=== PATIENT | female | born 1990 | race Caucasian/White ===

== ENCOUNTER 2018-09-04 19:21 | Emergency (ER) | payer BC ==
[2018-09-04] MEDS ORDERED: NORMAL SALINE 1000 ML 1,000 ML IV ONE (20:02)
--- NOTE | 2018-09-04 20:04 | ER Document Report ---
ED Medical Screen (RME) - General Chief Complaint: Palpitations/dizzy Stated Complaint: DIZZINESS Time Seen by Provider: 09/04/18 19:56 TRAVEL OUTSIDE OF THE [place] IN LAST 30 DAYS: No - HPI Patient complains to provider of: Dizziness with near syncope Notes: 09/04/18 20:03 Patient is a 28-year-old female presenting to the emergency room complaining of dizziness with near syncopal episodes that have been occurring intermittently over the past 2 weeks, she denies a headache, no vision changes, no nausea or vomiting, no fever or chills, currently menstruating but states it is fairly light and she has not had significant blood loss 09/04/18 20:04 RAPID MEDICAL EVALUATION DISCLOSURE I have seen this patient as part of a Rapid Medical Evaluation and, if applicable, placed any initially appropriate orders. The patient will be seen and fully evaluated, including a full history and physical exam, by a provider (in Main ED or Fast Track) when a room becomes available. - Related Data Allergies/Adverse Reactions: codeine Allergy (Verified 09/04/18 19:26) Physical Exam - Vital signs Vitals: Temp Pulse Resp BP Pulse Ox 98 F 82 18 146/77 H 100 09/04/18 19:34 09/04/18 19:34 09/04/18 19:34 09/04/18 19:34 09/04/18 19:34 Course - Vital Signs Vital signs: Temp Pulse Resp BP Pulse Ox 98 F 82 18 146/77 H 100 09/04/18 19:34 09/04/18 19:34 09/04/18 19:34 09/04/18 19:34 09/04/18 19:34
[2018-09-04 20:37] LABS: ABSOLUTE EOSINOPHILS # (AUTO) 0.1 10^3/uL (0.0-0.6); ABSOLUTE LYMPHOCYTES (AUTO) 2.3 10^3/uL (0.5-4.7); ABSOLUTE MONOCYTES (AUTO) 0.6 10^3/uL (0.1-1.4); BASOPHILS % (AUTO) 0.4 % (0-2); EOSINOPHILS % (AUTO) 0.8 % (0-6); HEMOGLOBIN 15.3 g/dL (12.0-15.5); LYMPHOCYTES % (AUTO) 28.6 % (13-45); MEAN CORPUSCULAR HEMOGLOBIN 32.2 pg (27.0-33.4); MEAN CORPUSCULAR HGB CONC 34.8 g/dL (32.0-36.0); MEAN CORPUSCULAR VOLUME 93 fl (80-97); MONOCYTES % (AUTO) 7.8 % (3-13); PLATELET COUNT 243 10^3/uL (150-450); RED BLOOD COUNT 4.76 10^6/uL (3.72-5.28); RED CELL DISTRIBUTION WIDTH 13.2 % (11.5-14.0); SEGMENTED NEUTROPHILS % (AUTO) 62.4 % (42-78); TOTAL CELLS COUNTED % (AUTO) 100 %
[2018-09-04 20:50] LABS: ANION GAP 11 (5-19)
[2018-09-04 21:03] LABS: CREATINE KINASE MB 0.28 ng/mL (<4.55)
[2018-09-04 21:04] LABS: TROPONIN I < 0.012 ng/mL
--- NOTE | 2018-09-04 21:06 | ER Document Report ---
ED General - General Chief Complaint: Palpitations/dizzy Stated Complaint: DIZZINESS Time Seen by Provider: 09/04/18 19:56 Primary Care Provider: CARRIE BRUNSON FNP [Primary Care Provider] - Follow up as needed Notes: 28-year-old female patient emergency department chief complaint of hypertension, dizzy spells. Intermittent weight loss and weight gain. Has not felt well for several weeks now. Went to her primary care doctor and was told her blood pressure was too high so she was sent here. Came to the ER yesterday but it was too busy and she felt better so she eventually left. Patient does have some PTSD from some trauma that happened several years ago. We did not go into discussing this. States that she has lost about 30 pounds since February. She has been working out however. There is a strong family history of Graves' disease and thyroid dysfunctions. Occasionally she will have some pain in the neck and thyroid area. Denies any chest pain at this time. No shortness of breath. No fever, chills, sweats. TRAVEL OUTSIDE OF THE [place] IN LAST 30 DAYS: No - HPI Onset: Last week Onset/Duration: Gradual, Constant Quality of pain: No pain Severity: Mild Pain Level: 0 Associated symptoms: Other - Dizziness, hypertension - Related Data Allergies/Adverse Reactions: codeine Allergy (Verified 09/04/18 19:26) Past Medical History - General Information source: Patient - Social History Smoking Status: Never Smoker Chew tobacco use (# tins/day): No Frequency of alcohol use: None Drug Abuse: None Lives with: Spouse/Significant other Family History: Thyroid Disfunction Patient has suicidal ideation: No Patient has homicidal ideation: No Renal/ Medical History: Denies: Hx Peritoneal Dialysis Past Surgical History: Reports: Hx Cholecystectomy, Hx Genitourinary Surgery Review of Systems - Review of Systems Notes: Constitutional: denies: Chills, Diaphoresis, Fever, Malaise, Weakness EENT: denies: Eye discharge, Blurred vision, Tearing, Double vision, Nose congestion, Nose discharge, Throat swelling, Mouth pain Cardiovascular: denies: Palpitations, Heart racing, Orthopnea, Dyspnea, Chest pain. Hypertension Respiratory: denies: Cough, Hurts to breathe, Wheezing, Shortness of breath Gastrointestinal: denies: Abdominal pain, Diarrhea, Nausea, Vomiting, Black stools, bright red blood in stool Genitourinary: denies: Burning, Dysuria, Discharge, Frequency, Flank pain, Hematuria Musculoskeletal: denies: Joint pain, Joint swelling, Muscle pain, Muscle sti ffness, back pain Hematologic/Lymphatic: denies: Anemia, Easy bleeding, Easy bruising, Blood clots Neurological/Psychological: denies: Confusion, Dementia, Depression, Loss of consciousness. Dizziness Skin: No lesions, no masses, no skin breakdown, no abscesses Physical Exam - Vital signs Vitals: Temp Pulse Resp BP Pulse Ox 98 F 82 18 146/77 H 100 09/04/18 19:34 09/04/18 19:34 09/04/18 19:34 09/04/18 19:34 09/04/18 19:34 Interpretation: Normal - General General appearance: Appears well, Alert - HEENT Head: Normocephalic, Atraumatic Eyes: Normal Pupils: PERRL - Respiratory Respiratory status: No respiratory distress Chest status: Nontender Breath sounds: Normal Chest palpation: Normal - Cardiovascular Rhythm: Regular Heart sounds: Normal auscultation Murmur: No - Abdominal Inspection: Normal Distension: No distension Bowel sounds: Normal Tenderness: Nontender Organomegaly: No organomegaly - Back Back: Normal, Nontender - Extremities General upper extremity: Normal inspection, Nontender, Normal color, Normal ROM, Normal temperature General lower extremity: Normal inspection, Nontender, Normal color, Normal ROM, Normal temperature, Normal weight bearing. No: Teresa's sign - Neurological Neuro grossly intact: Yes Cognition: Normal Orientation: AAOx4 Victorina Coma Scale Eye Opening: Spontaneous Leopold Coma Scale Verbal: Oriented Victorina Coma Scale Motor: Obeys Commands Leopold Coma Scale Total: 15 Speech: Normal Motor strength normal: LUE, RUE, LLE, RLE Sensory: Normal - Psychological Associated symptoms: Normal affect, Normal mood - Skin Skin Temperature: Warm Skin Moisture: Dry Skin Color: Normal Course - Re-evaluation Re-evalutation: 09/04/18 22:14 This is a well-appearing female in no acute distress. There is some concern based on her history of she could have some sort of thyroid dysfunction. TSH, free T4 and free T3 was ordered. TSH is elevated. Thyroid antibodies ordered. 09/04/18 22:15 Laboratory 09/04/18 09/04/18 09/04/18 20:20 20:20 20:20 WBC 8.0 RBC 4.76 Hgb 15.3 Hct 44.0 MCV 93 MCH 32.2 MCHC 34.8 RDW 13.2 Plt Count 243 Seg Neutrophils % 62.4 Lymphocytes % 28.6 Monocytes % 7.8 Eosinophils % 0.8 Basophils % 0.4 Absolute Neutrophils 5.0 Absolute Lymphocytes 2.3 Absolute Monocytes 0.6 Absolute Eosinophils 0.1 Absolute Basophils 0.0 Sodium 142.5 Potassium 4.2 Chloride 106 Carbon Dioxide 26 Anion Gap 11 BUN 14 Creatinine 0.84 Est GFR ( Amer) > 60 Est GFR (Non-Af Amer) > 60 Glucose 104 Calcium 9.7 Total Bilirubin 0.4 Direct Bilirubin 0.2 Neonat Total Bilirubin Not Reportable Neonat Direct Bilirubin Not Reportable Neonat Indirect Bili Not Reportable AST 24 ALT 28 Alkaline Phosphatase 70 Creatine Kinase 60 CK-MB (CK-2) 0.28 Troponin I < 0.012 Total Protein 7.7 Albumin 4.7 TSH Free T4 Free T3 pg/mL Urine Color Urine Appearance Urine pH Ur Specific Williams Urine Protein Urine Glucose (UA) Urine Ketones Urine Blood Urine Nitrite Urine Bilirubin Urine Urobilinogen Ur Leukocyte Esterase Urine WBC (Auto) Urine RBC (Auto) Urine Bacteria (Auto) Squamous Epi Cells Auto Amorphous Sediment Auto Urine Mucus (Auto) Urine Ascorbic Acid Urine HCG, Qual 09/04/18 09/04/18 20:20 20:45 WBC RBC Hgb Hct MCV MCH MCHC RDW Plt Count Seg Neutrophils % Lymphocytes % Monocytes % Eosinophils % Basophils % Absolute Neutrophils Absolute Lymphocytes Absolute Monocytes Absolute Eosinophils Absolute Basophils Sodium Potassium Chloride Carbon Dioxide Anion Gap BUN Creatinine Est GFR ( Amer) Est GFR (Non-Af Amer) Glucose Calcium Total Bilirubin Direct Bilirubin Neonat Total Bilirubin Neonat Direct Bilirubin Neonat Indirect Bili AST ALT Alkaline Phosphatase Creatine Kinase CK-MB (CK-2) Troponin I Total Protein Albumin TSH 6.70 H Free T4 1.47 Free T3 pg/mL 4.90 Urine Color STRAW Urine Appearance CLOUDY Urine pH 6.0 Ur Specific Williams 1.006 Urine Protein NEGATIVE Urine Glucose (UA) NEGATIVE Urine Ketones NEGATIVE Urine Blood LARGE H Urine Nitrite NEGATIVE Urine Bilirubin NEGATIVE Urine Urobilinogen NEGATIVE Ur Leukocyte Esterase SMALL H Urine WBC (Auto) 26 Urine RBC (Auto) 1 Urine Bacteria (Auto) 2+ Squamous Epi Cells Auto 6 Amorphous Sediment Auto TRACE Urine Mucus (Auto) RARE Urine Ascorbic Acid NEGATIVE Urine HCG, Qual NEGATIVE - Vital Signs Vital signs: Temp Pulse Resp BP Pulse Ox 98 F 78 18 134/72 H 100 09/04/18 19:34 09/04/18 20:56 09/04/18 19:34 09/04/18 20:56 09/04/18 19:34 - Laboratory Result Diagrams: 09/04/18 20:20 09/04/18 20:20 Laboratory results interpreted by me: 09/04/18 09/04/18 20:20 20:45 TSH 6.70 H Urine Blood LARGE H Ur Leukocyte Esterase SMALL H - EKG Interpretation by Me EKG shows normal: Sinus rhythm, Alta, Intervals, QRS Complexes, ST-T Waves Discharge - Discharge Clinical Impression: Elevated TSH Condition: Good Disposition: HOME, SELF-CARE Instructions: Hypothyroidism ([facility]), High Blood Pressure ([facility]) Additional Instructions: You reported blood pressures were slightly elevated. Your blood pressure here was 140/90. Your TSH was slightly elevated and this may require further evaluation and treatment. Please follow-up with your regular doctor for other testing. Return for any worsening symptoms or concerns. Referrals: CARRIE BRUNSON FNP [Primary Care Provider] - Follow up as needed
[2018-09-04 21:07] LABS: FREE T3 4.9 pg/mL (2.77-5.27); FREE T4 (FREE THYROXINE) 1.47 ng/dL (0.78-2.19)
[2018-09-04 21:20] LABS: AMORPHOUS SEDIMENT,URINE TRACE /HPF; APPEARANCE,URINE CLOUDY; BILIRUBIN,URINE NEGATIVE (NEGATIVE); GLUCOSE, URINE NEGATIVE (NEGATIVE); KETONES,URINE NEGATIVE (NEGATIVE); LEUKOCYTE ESTERASE,URINE SMALL (NEGATIVE); NITRITE,URINE NEGATIVE (NEGATIVE); PROTEIN,URINE NEGATIVE (NEGATIVE); URINE SPECIFIC GRAVITY 1.006; UROBILINOGEN,URINE NEGATIVE mg/dL (<2.0)
[2018-09-04 21:21] LABS: THYROID STIMULATING HORMONE 6.7 uIU/mL (0.47-4.68)
[2018-09-04 21:21] LABS: COLOR,URINE STRAW
[2018-09-04 21:23] LABS: ALANINE AMINOTRANSFERASE 28 U/L (9-52); ALBUMIN 4.7 g/dL (3.5-5.0); ALKALINE PHOSPHATASE 70 U/L (38-126); ASPARTATE AMINO TRANSFERASE 24 U/L (14-36); BILIRUBIN,DIRECT 0.2 mg/dL (0.0-0.4); BILIRUBIN,TOTAL 0.4 mg/dL (0.2-1.3); BLOOD UREA NITROGEN 14 mg/dL (7-20); CALCIUM 9.7 mg/dL (8.4-10.2); CARBON DIOXIDE 26 mmol/L (22-30); CHLORIDE 106 mmol/L (98-107); CREATINE KINASE 60 U/L (30-135); GLUCOSE 104 mg/dL (75-110); POTASSIUM 4.2 mmol/L (3.6-5.0); SODIUM 142.5 mmol/L (137-145); TOTAL PROTEIN 7.7 g/dL (6.3-8.2)
[2018-09-04 23:09] VITALS: BP 140/90
--- NOTE | 2018-09-05 07:53 | EKG REPORT ---
SEVERITY:- BORDERLINE ECG - SINUS RHYTHM INFERIOR Q WAVES, PROBABLY NORMAL VARIATION : Confirmed by: Jatin Vidal MD 05-Sep-2018 07:52:57
[2018-09-06 06:40] LABS: THYROID PEROXIDASE (TPO) AB 167 IU/mL (0-34)
[2018-09-06 07:10] LABS: THYROGLOBULIN AB SO <1.0 IU/mL (0.0-0.9)
== END 2018-09-04 23:09 | disposition home or self-care (01) ==
LOC: ER 19:21
DX: R94.6 Abnormal results of thyroid function studies (principal); R00.2 Palpitations; R42 Dizziness and giddiness; I10 Essential (primary) hypertension; M54.2 Cervicalgia
CPT/HCPCS: 93005; 99284; 96360; 36415; 87086; 84439; 82553; 82550; 84443; 85025; 81025; 80053; 81001; 84484; 86376; 84481; 93010; J7030